=== PATIENT | female | born 1940 | race Caucasian/White ===

== ENCOUNTER 2024-06-12 06:18 | Emergency (ER) | payer BC, OTHER ==
[~2024-06-12] VITALS: Ht 160 cm; Wt 72.6 kg
[2024-06-12 06:36] VITALS: BP_SYST 156; PULSE 83; RESP 20; TEMP 96.5; O2SAT 98
[2024-06-12 06:57] LABS: BASOPHILS % (AUTO) 0.5 % (0.0-2.0); EOSINOPHILS % (AUTO) 0.6 % (0.0-4.0); HEMOGLOBIN 13.5 g/dL (12.0-16.0); LYMPHOCYTES % (AUTO) 14.3 % (20.5-51.5); MEAN CORPUSCULAR HEMOGLOBIN 31 pg (27-31); MEAN CORPUSCULAR HGB CONC 33 % (32-36); MEAN CORPUSCULAR VOLUME 95 fL (79.0-98.0); MONOCYTES # (AUTO) 0.5 K/uL (0.0-1.0); MONOCYTES % (AUTO) 7.5 % (1.7-9.3); NEUTROPHILS # (AUTO) 5.3 K/uL (1.8-7.7); NEUTROPHILS % (AUTO) 77.1 % (40.0-70.0); PLATELET COUNT (AUTO) 387 K/uL (130-430); RED BLOOD CELL COUNT(AUTO) 4.32 MIL/uL (4.2-6.2); RED CELL DISTRIBUTION WIDTH 18.8 % (9.0-15.0); WHITE BLOOD COUNT (AUTO) 6.9 K/uL (4.8-10.8)
[2024-06-12 07:02] LABS: ANION GAP 11 (5-15); CALCIUM 9.9 mg/dL (8.4-11.0); CARBON DIOXIDE 29 mmol/L (23-29); CHLORIDE 100 mmol/L (98-107); CREATININE 0.95 mg/dL (0.55-1.30); GLUCOSE 109 mg/dL (74-106); POTASSIUM 3.3 mmol/L (3.5-5.1); SODIUM SERUM 140 mmol/L (136-145); UREA NITROGEN, BLOOD 28 mg/dL (8-21)
[2024-06-12 07:07] LABS: ERYTHROCYTE SEDIMENTATION RATE 27 MM/HR (0-20)
[2024-06-12] MEDS ORDERED: ACET1TAB93 PO (07:23)
[2024-06-12 07:32] VITALS: BP_SYST 134; PULSE 84; RESP 20; TEMP 97.2; O2SAT 96
== END 2024-06-12 07:31 | disposition home or self-care (01) ==
LOC: SED 06:18
DX: G44.1 Vascular headache, not elsewhere classified (principal); R00.2 Palpitations; Z85.118 Personal history of other malignant neoplasm of bronchus and lung
CPT/HCPCS: 36415; 70450-TC; 80048; 85025; 85651; 99284

== ENCOUNTER 2024-06-29 03:54 | Emergency (ER) | payer BC ==
[~2024-06-29] VITALS: Ht 167.6 cm; Wt 68.0 kg
[2024-06-29 04:00] VITALS: BP_SYST 156; PULSE 75; RESP 19; TEMP 96.2; O2SAT 96
[2024-06-29] MEDS ORDERED: ACET1TAB93 PO (04:36)
[2024-06-29] MEDS ORDERED: AMLO10TA88 PO (04:36)
[2024-06-29] MEDS ORDERED: LEVO100T9 PO (04:36)
[2024-06-29] MEDS ORDERED: FLUT200B PO (04:36)
[2024-06-29 04:44] LABS: BASOPHILS % (AUTO) 0.6 % (0.0-2.0); EOSINOPHILS # (AUTO) 0.1 K/uL (0.0-0.4); EOSINOPHILS % (AUTO) 1.5 % (0.0-4.0); HEMATOCRIT 36.2 % (36-48); HEMOGLOBIN 12.3 g/dL (12.0-16.0); LYMPHOCYTES # (AUTO) 1.2 K/uL (1.0-5.5); LYMPHOCYTES % (AUTO) 21.7 % (20.5-51.5); MEAN CORPUSCULAR HEMOGLOBIN 32 pg (27-31); MEAN CORPUSCULAR HGB CONC 34 % (32-36); MEAN CORPUSCULAR VOLUME 95 fL (79.0-98.0); MONOCYTES # (AUTO) 0.5 K/uL (0.0-1.0); MONOCYTES % (AUTO) 9.7 % (1.7-9.3); NEUTROPHILS # (AUTO) 3.6 K/uL (1.8-7.7); NEUTROPHILS % (AUTO) 66.5 % (40.0-70.0); PLATELET COUNT (AUTO) 302 K/uL (130-430); RED CELL DISTRIBUTION WIDTH 21.1 % (9.0-15.0); WHITE BLOOD COUNT (AUTO) 5.5 K/uL (4.8-10.8)
[2024-06-29 05:06] LABS: ANION GAP 8 (5-15); CALCIUM 8.9 mg/dL (8.4-11.0); CARBON DIOXIDE 29 mmol/L (23-29); CHLORIDE 105 mmol/L (98-107); CREATININE 0.81 mg/dL (0.55-1.30); GLUCOSE 100 mg/dL (74-106); POTASSIUM 3.5 mmol/L (3.5-5.1); SODIUM SERUM 142 mmol/L (136-145); UREA NITROGEN, BLOOD 21 mg/dL (8-21)
[2024-06-29] MEDS: ACETAMINOPHEN 500 MG TABLET PO ONE (05:27)
[2024-06-29 05:40] VITALS: BP_SYST 149; PULSE 72; RESP 19; TEMP 96.2; O2SAT 98
== END 2024-06-29 05:40 | disposition home or self-care (01) ==
LOC: SED 03:54
DX: R06.02 Shortness of breath (principal); Z85.118 Personal history of other malignant neoplasm of bronchus and lung; Z79.899 Other long term (current) drug therapy; Z79.2 Long term (current) use of antibiotics
CPT/HCPCS: 36415; 71045; 80048; 83880; 84484; 85025; 85379; 93005; 99285